=== PATIENT | female | born 1985 | race Two or more races ===

== ENCOUNTER 2017-12-11 05:31 | Emergency (ER) | payer OTHER, BC ==
[2017-12-11] MEDS ORDERED: Sodium Chloride 0.9% 1,000 ML IV SCH (06:15)
[2017-12-11 06:32] LABS: ACETAMINOPHEN < 2 ug/mL (10-30)
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
== END 2017-12-11 09:32 | disposition home or self-care (01) ==
LOC: FB.ED 05:31
DX: S06.0X9A Concussion with loss of consciousness of unspecified duration, initial encounter (principal); S00.531A Contusion of lip, initial encounter; S70.12XA Contusion of left thigh, initial encounter; F10.129 Alcohol abuse with intoxication, unspecified; Y90.0 Blood alcohol level of less than 20 mg/100 ml; V48.5XXA Car driver injured in noncollision transport accident in traffic accident, initial encounter
CPT/HCPCS: 36415; 70450; 72125; 80053; 80305; 81025; 85025; 93005; 96360; 96361; 99285; G0480; J7040